=== PATIENT | male | born 1985 | race Two or more races ===

== ENCOUNTER 2021-09-25 16:46 | Emergency (ER) | payer SELFPAY ==
[~2021-09-25] VITALS: Ht 188 cm; Wt 123.8 kg
[2021-09-25 17:26] VITALS: BP 120/96
== END 2021-09-26 00:56 | disposition left against medical advice (07) ==
LOC: ER 16:46
DX: R07.89 Other chest pain (principal); Z53.21 Procedure and treatment not carried out due to patient leaving prior to being seen by health care provider